=== PATIENT | female | born 1950 | race Caucasian/White ===

== ENCOUNTER 2019-04-19 12:03 | Emergency (ER) | payer MEDICARE, BC ==
[2019-04-19 12:19] VITALS: BP 166/79
--- NOTE | 2019-04-19 12:44 | UC ---
Skin Complaint HPI - HPI Summary HPI Summary: hives x 3 days itchy skin , moderated to sever, nothing makes if worse, better with Benadryl has bilateral swelling of her hands, no sob, no cough ? bug bites about 5 days ago no new food / detergents/ soap no fever, no chills - History of Current Complaint Chief Complaint: UCSkin Time Seen by Provider: 04/19/19 12:20 Stated Complaint: SKIN CONCERN Hx Obtained From: Patient Onset/Duration: Gradual Onset, Lasting Days - 3, Still Present Timing: Constant Onset Severity: Moderate Current Severity: Moderate Pain Intensity: 0 Location: Diffuse Character: Pruritus, Hives, Redness Aggravating Factor(s): Nothing Alleviating Factor(s): Antihistamines Associated Signs & Symptoms: Positive: Rash. Negative: Nausea, Vomiting, Numbness, Thirst, Diaphoresis, Weakness, Pallor, Shivering, Fever, Chills, Cough , Wheezing, Chest Pain, Tenderness Related History: Insect Bite/Sting - Allergy/Home Medications Allergies/Adverse Reactions: Allergies Allergy/AdvReac Type Severity Reaction Status Date / Time No Known Allergies Allergy Verified 04/19/19 12:20 Home Medications: Home Medications Ibuprofen 800 mg PO Q6HR PRN 04/19/19 [History Confirmed 04/19/19] Levothyroxine Sodium [Synthroid] 25 mcg PO DAILY 04/19/19 [History Confirmed ] diphenhydrAMINE HCl [Benadryl Allergy] 50 mg PO Q6HR PRN 04/19/19 [History Confirmed 04/19/19] PMH/Surg Hx/FS Hx/Imm Hx Endocrine History: Hypothyroidism - Surgical History Surgical History: Yes Surgery Procedure, Year, and Place: right wrist carpal tunnel surgery, left wrist surgery, 3 c-sections - Family History Known Family History: Negative: Diabetes - Social History Alcohol Use: None Substance Use Type: None Smoking Status (MU): Never Smoked Tobacco Review of Systems All Other Systems Reviewed And Are Negative: Yes Constitutional: Positive: Negative Skin: Positive: Rash Eyes: Positive: Negative ENT: Positive: Negative Respiratory: Positive: Negative Cardiovascular: Positive: Negative Is Patient Immunocompromised?: No Physical Exam Triage Information Reviewed: Yes Appearance: Well-Appearing, No Pain Distress, Well-Nourished Vital Signs: Initial Vital Signs Temp 97.7 F 04/19/19 12:13 Pulse 79 04/19/19 12:13 Resp 20 04/19/19 12:13 BP 166/79 04/19/19 12:13 Pulse Ox 97 04/19/19 12:13 Vital Signs Reviewed: Yes Eyes: Positive: Conjunctiva Clear ENT: Positive: Normal ENT inspection, Hearing grossly normal, Pharynx normal Neck: Positive: Supple, Nontender, No Lymphadenopathy Respiratory: Positive: Chest non-tender, Lungs clear, Normal breath sounds Cardiovascular: Positive: RRR, No Murmur, Pulses Normal Skin: Positive: Rashes - hives on arms and legs bilateral Course/Dx - Diagnoses Provider Diagnosis: Urticaria Discharge - Sign-Out/Discharge Documenting (check all that apply): Patient Departure All imaging exams completed and their final reports reviewed: No Studies - Discharge Plan Condition: Stable Disposition: HOME Prescriptions: predniSONE [Prednisone 20 MG TAB] 40 mg PO DAILY WITH MEAL #10 tablet Patient Education Materials: Urticaria (ED) Referrals: Bharat Pizano MD [Primary Care Provider] - 5 Days Additional Instructions: prednisone 40 mg daily x 5 days may cont. with Benadryl 25 mg every 6 hrs as needed - Billing Disposition and Condition Condition: STABLE Disposition: Home
== END 2019-04-19 12:40 | disposition home or self-care (01) ==
LOC: UCCORT 12:03
DX: L50.9 Urticaria, unspecified (principal); E03.9 Hypothyroidism, unspecified; Z79.899 Other long term (current) drug therapy
CPT/HCPCS: 99212; G0463